=== PATIENT | male | born 1960 ===

== ENCOUNTER 2024-12-31 12:14 | Emergency (ER) | payer MEDICARE ==
[2024-12-31 12:31] LABS: BASOPHILS ABSOLUTE AUTO 0.06 10^3/uL (0.00-0.50); BASOPHILS PERCENT AUTO 0.7 % (0-1); EOSINOPHILS ABSOLUTE AUTO 0.42 10^3/uL (0.00-1.50); EOSINOPHILS PERCENT AUTO 5.1 % (0-6); IMMATURE GRAN ABSOLUTE AUTO 0.01 10^3/uL (0.00-0.49); IMMATURE GRAN PERCENT AUTO 0.1 % (0.0-4.9); LYMPHOCYTES ABSOLUTE AUTO 2.02 10^3/uL (0.60-5.00); LYMPHOCYTES PERCENT AUTO 24.5 % (24-44); MONOCYTES ABSOLUTE AUTO 0.73 10^3/uL (0.00-1.50); MONOCYTES PERCENT AUTO 8.9 % (0-10); NEUTROPHILS ABSOLUTE AUTO 4.99 x10^3/uL (1.80-8.00); NEUTROPHILS PERCENT AUTO 60.7 % (41-71); PLATELET COUNT,PLT 287 10^3/uL (150-400); RED BLOOD CELL COUNT 4.93 x10^6/uL (4.50-6.00); WHITE BLOOD CELL COUNT,WBC 8.2 10^3/uL (4.0-11.0)
[2024-12-31 12:44] LABS: ALANINE AMINOTRANSFERASE,ALT 30.0 U/L (12-78); ASPARTATE AMNIOTRANSFERASE,AST 22.0 U/L (15-37); BILIRUBIN TOTAL 0.6 mg/dL (0.0-1.0); BLOOD UREA NITROGEN,BUN 18.0 mg/dL (7-18); CARBON DIOXIDE,CO2 29.0 mmol/L (21-32); CHLORIDE,CL 102.0 mEq/L (98-106); CREATININE 0.9 mg/dL (0.7-1.3); EST CRCL DRUG DOSING (CG) 84.49 mL/min; GLUCOSE RANDOM 119.0 mg/dL (75-99); POTASSIUM,K 4.0 mEq/L (3.5-5.0); PROTEIN TOTAL,TP 7.4 g/dL (6.4-8.2); SODIUM,NA 140.0 mEq/L (136-145)
[2024-12-31 12:45] LABS: ESTIMATED GFR 95.0 mL/min (>=60)
== END 2024-12-31 13:25 | disposition home or self-care (01) ==
LOC: CC.ED 12:14
DX: R07.89 Other chest pain (principal); I25.10 Atherosclerotic heart disease of native coronary artery without angina pectoris; Z79.899 Other long term (current) drug therapy
CPT/HCPCS: 36415; 71046; 80053; 83690; 83735; 84484; 85025; 85379; 85730; 93005; 93010; 99284; 99285; A9270